=== PATIENT | male | born 1940 | race Caucasian/White ===

== ENCOUNTER 2020-10-28 08:46 | Outpatient (CLI) | payer MEDICARE, BC ==
--- NOTE | 2020-10-28 11:19 | CT ---
CT OF CHEST PERFORMED WITHOUT CONTRAST ENHANCEMENT: HISTORY: The patient had pneumonia a few months ago, still with persistent shortness of breath. FINDINGS: There are severe upper lobe emphysematous lung changes. There is some more linear change within the region of the lingula probably related to some scarring. There are no pulmonary nodules identified. I do not appreciate any significant mediastinal or hilar adenopathy on this noncontrast study. Visualized liver parenchyma shows o focal findings. Hypodensity involving the left kidney is partial ly visualized and most likely a cyst. Right and left adrenal glands are normal. No concerning osteolytic or osteoblastic bony change. IMPRESSION: Severe emphysematous lung change. Some more linear change within the lingula probably related to sca rring. POS: [facility]
== END 2020-10-28 08:47 | disposition home or self-care (01) ==
LOC: BICCT 08:46
PROVIDERS: ATTEND Internal Medicine Critical Care Medicine
DX: J18.9 Pneumonia, unspecified organism (principal); J43.9 Emphysema, unspecified
CPT/HCPCS: 71250